=== PATIENT | male | born 1980 | race Caucasian/White ===

== ENCOUNTER 2017-07-15 01:44 | Emergency (ER) | payer OTHER ==
[2017-07-15 04:03] VITALS: BP 144/92
== END 2017-07-15 04:03 | disposition home or self-care (01) ==
LOC: ED 01:44
DX: S93.402A Sprain of unspecified ligament of left ankle, initial encounter (principal); W11.XXXA Fall on and from ladder, initial encounter; Y93.89 Activity, other specified; Y92.89 Other specified places as the place of occurrence of the external cause; Y99.8 Other external cause status
CPT/HCPCS: Q0092

== ENCOUNTER 2017-08-29 17:06 | Emergency (ER) | payer OTHER ==
[~2017-08-29] VITALS: Ht 170.2 cm; Wt 98.7 kg
[2017-08-29 19:40] VITALS: BP 135/85
== END 2017-08-29 19:40 | disposition home or self-care (01) ==
LOC: ED 17:06
DX: B02.22 Postherpetic trigeminal neuralgia (principal)